=== PATIENT | male | born 1950 | race Caucasian/White ===

== ENCOUNTER → 2018-08-22 | Outpatient (CLI) | payer OTHER, MEDICARE ==
[~2018-08-22] MED LIST: IOPAMIDOL (ISOVUE 370) 100 ML BTL IV ONE
== END ==
LOC: CIMAGING 10:28
PROVIDERS: ATTEND Internal Medicine Cardiovascular Disease
DX: I71.2 Thoracic aortic aneurysm, without rupture (principal); R91.8 Other nonspecific abnormal finding of lung field; K65.4 Sclerosing mesenteritis; D17.71 Benign lipomatous neoplasm of kidney; D73.89 Other diseases of spleen; K75.3 Granulomatous hepatitis, not elsewhere classified; M89.8X8 Other specified disorders of bone, other site
CPT/HCPCS: 71275; 74175; Q9967; 82565-PO

== ENCOUNTER → 2018-08-29 | Outpatient (CLI) | payer OTHER, MEDICARE | LOC: BHFA 14:30 | PROVIDERS: ATTEND Internal Medicine Cardiovascular Disease | DX: I71.9 Aortic aneurysm of unspecified site, without rupture (principal); R01.1 Cardiac murmur, unspecified ==

== ENCOUNTER → 2018-09-14 | Day surgery (SDC) | payer OTHER, MEDICARE ==
[~2018-09-14] MED LIST changes: +BENZOCAINE UNIT DOSE SPRAY HURRICAINE MM ONE; -IOPAMIDOL (ISOVUE 370) 100 ML BTL IV ONE; +LIDOCAINE 2% 100 MG/5 ML SYR ONE; +MIDAZOLAM 2 MG/2 ML VIAL IVP ONE; +NS 500 ML IV ONE; +PROPOFOL 200 MG/20 ML VIAL ONE; +SUCCINYLCHOLINE CHLORIDE 200 MG/10 ML SYR IVP ONE; +fentaNYL 100 MCG/2 ML INJ IVP ONE
--- NOTE | 2018-09-14 15:36 | PDHPUP ---
History & Physical Update H&P update statement: This history and physical update is based on an assessment of the patient which was completed after admission or registration (within 24 hours), but prior to the surgery/procedure. H&P update: H&P reviewed & patient examined, no change in patient's condition since H&P completed
--- NOTE | 2018-09-14 16:27 | PDANEPAE ---
ANE History of Present Illness AI and Ao Aneurism s/f JACK ANE Past Medical History - Cardiovascular History Hx Hypertension: Yes - Pulmonary History Hx Oxygen in Use at Home: No Hx Sleep Apnea: No - Endocrine History Hx Diabetes: No Hypothyroid: Yes ANE Review of Systems Review of Systems: - Exercise capacity METS (RN): 5 METS ANE Patient History - Allergies Allergies/Adverse Reactions: No Known Allergies Allergy (Unverified 02/04/16 21:38) - Home Medications Home medications: home medication list seen and reviewed Home Medications: Levothyroxine [Synthroid 200 mcg (*)] 200 mcg PO DAILY 09/14/18 [Last Taken Unknown] Multivitamin 1 tab PO DAILY 09/14/18 [Last Taken Unknown] SUMAtriptan [Imitrex 50 MG (*)] 50 mg PO PRN PRN 09/14/18 [Last Taken Unknown] Telmisartan 40 mg PO DAILY 09/14/18 [Last Taken 09/14/18] - NPO status NPO Status: no food or drink >8 hours NPO Since - Liquids (Time): 12:00 (gatorade) - Anes Hx Anes Hx: no prior problems - Smoking Hx Smoking Status: Never smoked Marijuana use: No - Alcohol Use Alcohol Use: None - Family Anes Hx Family Anes Hx: none ANE Labs/Vital Signs - Labs Result Diagrams: 09/14/18 15:05 - Vital Signs Height: 198.12 cm Weight: 111.13 kg ANE Physical Exam - Airway Neck exam: FROM Mallampati Score: Class 1 Mouth exam: normal dental/mouth exam - Pulmonary Pulmonary: no respiratory distress - Cardiovascular Cardiovascular: regular rate and rhythym - ASA Status ASA Status: II ANE Anesthesia Plan Anesthesia Plan: GA with mask Urgent/Emergent Case: Chente ferrell completed preop but documented later for safe timely pt care
--- NOTE | 2018-09-14 16:27 | POSTANESTH ---
Post Anesthetic Evaluation Cardiovascular Status: Normal, Stable Respiratory Status: Normal, Stable Level of Consciousness/Mental Status: Can Participate in Eval Pain Control: Adequate, Prn Tx Ordered Nausea/Vomiting Control: Adequate, Prn Tx Ordered Complications Possibly Related to Anesthesia: None Noted
--- NOTE | 2018-09-14 16:51 | ECHO ---
[email or web address] [address] [address] Main: [phone] Echocardiography Examination Transesophageal Name: DARIELA HINES MR#: [id number] Study Date: 09/14/2018 Study Time: 03:27 PM Date of : 1950 Age: 67 year(s) Height: ( ) Weight: ( ) BSA: Gender: Male Examination: JACK Contrast: I.V. dose of agitated saline Image Quality: Adequate Rhythm: Heart Rate: BP: / Indication: aortic insufficiency Procedure Staff Referring Physician: School Bus Mechanic: Toya Harkins [facility] Reading Physician: Jacobo Mojica MD Requesting Provider: Ordering Physician: Jacobo Mojica MD Indication: aortic insufficiency Acute complication: None Measurements Additional Vessels AV/MV Label Value Normal Value Label Value Normal Value AR Vena contracta 0.9 cm Conclusions The left ventricle measures at the upper limits of normal in size. The ejection fraction is preserved at 50-55%. There are no segmental wall motion abnormalities. Left ventricular free wall thickness is normal. The left atrium appears to be at the upper limits of normal in size. RA dimensions are normal. Interatrial septum is intact on color flow, 2 dimensional Doppler imaging and by agitated saline contrast injection. The mitral valve was normal appearance with mild mitral regurgitation. The aortic valve is structurally normal with 3 leaflets that appeared to be thin and pliable. There is severe aortic insufficiency with an eccentric jet directed posteriorly towards the anterior leaflet of the mitral valve. This appears to be based on annular dilatation. The ascending aorta and sinuses of Valsalva are dilated measuring 5.4 cm. There is no evidence of dissection. The tricuspid valve is normal in appearance with mild tricuspid regurgitation. The pulmonic valve appears to be normal with mild pulmonic insufficiency. No pericardial effusion. Findings Left Ventricle: Left ventricle is mildly dilated. Low normal left ventricular systolic function. EF evaluated by visual assessment. EF range is estimated at 50 % - 55 %. Patient: DARIELA HINES Study Date: 09/14/2018 Page 1 of 2 03:27 PM Right Ventricle: Normal size right ventricle. Right ventricular systolic function is normal. Left Atrium Appendage: No thrombus is identified. Mitral Valve: Mitral valve appears structurally normal. Mild mitral regurgitation. No mitral valve stenosis. Aortic Valve: Severe aortic regurgitation is present. The jet is eccentric, directed towards the anterior mitral valve. There is no aortic stenosis. The aortic valve is trileaflet. Tricuspid Valve: Tricuspid valve leaflets are structurally normal. Mild tricuspid regurgitation. Pulmonic Valve: Pulmonic leaflets are structurally normal. Mild pulmonic valve regurgitation is present. Aorta: Markedly dilated sinus of valsalva measuring 5.40 cm. Pericardium: No pericardial effusion. Exam Details Procedure Ordered: JACK Procedure Status: Routine study Image Quality: Adequate Consent: Risks, alternatives of procedure explained to patient, informed consent obtained Probe Insertion: Attending crm manager Contrast: I.V. dose of agitated salineIntravenous contrast was administered to evaluate intracardiac shunting Facility Location: Cardiac Echo 1 (No Signature Object) Patient: DARIELA HINES Study Date: 09/14/2018 Page 2 of 2 03:27 PM [id number]
== END | disposition home or self-care (01) ==
LOC: FCATH 14:57
PROVIDERS: ATTEND Internal Medicine Cardiovascular Disease
PROC: B246ZZ4 Ultrasonography of Right and Left Heart, Transesophageal (ICD-10-PCS; principal; 2018-09-14)
DX: I35.1 Nonrheumatic aortic (valve) insufficiency (principal); I71.2 Thoracic aortic aneurysm, without rupture; R91.1 Solitary pulmonary nodule; R93.7 Abnormal findings on diagnostic imaging of other parts of musculoskeletal system; I10 Essential (primary) hypertension; E03.9 Hypothyroidism, unspecified
CPT/HCPCS: J0330; J2001; J2704

== ENCOUNTER → 2018-09-21 | Outpatient (CLI) | payer OTHER, MEDICARE | LOC: FIMAGING 12:31 | PROVIDERS: ATTEND Surgery | DX: E21.3 Hyperparathyroidism, unspecified (principal) | CPT/HCPCS: 78070; A9500 ==

== ENCOUNTER → 2018-09-28 | Outpatient (CLI) | payer OTHER, MEDICARE | LOC: FIMAGING 15:45 | PROVIDERS: ATTEND Physician Assistant | DX: E21.3 Hyperparathyroidism, unspecified (principal) ==

== ENCOUNTER 2018-10-06 10:00 | Observation (INO) | payer OTHER, MEDICARE ==
[2018-10-06] MEDS ORDERED: BUPIVACAINE 0.25% 30 ML SDV ONE (13:22)
[2018-10-06] MEDS ORDERED: THROMBIN (BOVINE) 5,000 UNIT VIAL TP ONE (13:23)
[2018-10-06] MEDS ORDERED: LR 1,000 ML IV SCH (13:31)
[2018-10-06] MEDS ORDERED: ceFAZolin 2 GM/DEXTROSE 100 ML IV ONE (13:31)
[2018-10-06] MEDS ORDERED: LIDOCAINE 1% 2 ML INJ ID PRN (13:44)
[2018-10-06] MEDS ORDERED: LIDOCAINE 1% 2 ML INJ ONE (13:50)
--- NOTE | 2018-10-06 14:12 | PDHPUP ---
History & Physical Update H&P update statement: This history and physical update is based on an assessment of the patient which was completed after admission or registration (within 24 hours), but prior to the surgery/procedure. H&P update: no change in patient's condition since H&P completed, changes noted
--- NOTE | 2018-10-06 14:15 | PDANEPAE ---
ANE History of Present Illness parathyroid adenoma s/f L parathyroidectomy ANE Past Medical History - Cardiovascular History Hx Hypertension: Yes Hx Arrhythmias: No Hx Chest Pain: No Hx Coronary Artery / Peripheral Vascular Disease: No Hx Palpitations: No Cardiovascular History Comment: aortic insufficiency. aortic regurgitation. Ao anuerism. followed by [facility] - Pulmonary History Hx COPD: No Hx Asthma/Reactive Airway Disease: No Hx Recent Upper Respiratory Infection: No Hx Oxygen in Use at Home: No Hx Sleep Apnea: No Sleep Apnea Screening Result - Last Documented: Positive Pulmonary History Comment: pulm nodule dx 09/21/18. armond triggers - Neurologic History Hx Cerebrovascular Accident: No Hx Seizures: No Hx Dementia: No - Endocrine History Hx Diabetes: No Endocrine History Comment: hypothyroidism - Renal History Hx Renal Disorders: No - Liver History Hx Hepatic Disorders: No - Neurological & Psychiatric Hx Hx Neurological and Psychiatric Disorders: No - Congenital Disorder History Hx Congenital Disorders: No - GI History Hx Gastrointestinal Disorders: No - Other Health History Other Health History: wears glasses - Chronic Pain History Chronic Pain: No - Surgical History Prior Surgeries: 09/14/18 JACK with White. shoulder scope ANE Review of Systems Review of Systems: - Exercise capacity METS (RN): 6 METS ANE Patient History - Allergies Allergies/Adverse Reactions: No Known Allergies Allergy (Verified 10/06/18 13:38) - Home Medications Home medications: home medication list seen and reviewed Home Medications: Levothyroxine [Synthroid 200 mcg (*)] 200 mcg PO DAILY 09/14/18 [Last Taken Unknown] SUMAtriptan [Imitrex 50 MG (*)] 50 mg PO PRN PRN 09/14/18 [Last Taken Unknown] Telmisartan 40 mg PO DAILY 09/14/18 [Last Taken 09/14/18] - NPO status NPO Status: no food or drink >8 hours NPO Since - Liquids (Date): 10/06/18 NPO Since - Liquids (Time): 11:00 NPO Since - Solids (Date): 10/06/18 NPO Since - Solids (Time): 05:30 - Anes Hx Anes Hx: no prior problems - Smoking Hx Smoking Status: Never smoked - Alcohol Use Alcohol Use: None - Family Anes Hx Family Anes Hx: none (Gatorade at 1100) Family Hx Anesthesia Complications: none ANE Labs/Vital Signs - Labs Result Diagrams: 10/06/18 13:55 - Labs - BMP Sodium: pending - Vital Signs Blood Pressure: 150/81 Heart Rate: 58 Respiratory Rate: 16 O2 Sat (%): 97 Height: 198.12 cm Weight: 111.13 kg ANE Physical Exam - Airway Neck exam: FROM Mallampati Score: Class 2 Mouth exam: normal dental/mouth exam - Pulmonary Pulmonary: no respiratory distress - Cardiovascular Cardiovascular: regular rate and rhythym - ASA Status ASA Status: II ANE Anesthesia Plan Anesthesia Plan: general endotracheal anesthesia (2nd IV in saphenous, keep dP/ dT low)
[2018-10-06] MEDS ORDERED: REMIFENTANIL HCL 1 MG VIAL ONE (14:24)
[2018-10-06] MEDS ORDERED: PROPOFOL/EMULSION 500 MG/50 ML BOTTLE IV ONE (14:24)
[2018-10-06] MEDS ORDERED: DEXAMETHASONE 4 MG/ML VIAL ONE ×2 (14:24)
[2018-10-06] MEDS ORDERED: ONDANSETRON 4 MG/2 ML VIAL ONE (14:24)
[2018-10-06] MEDS ORDERED: LIDOCAINE 2% 2 ML INJ ONE ×2 (14:24)
[2018-10-06] MEDS ORDERED: fentaNYL 100 MCG/2 ML INJ ONE (14:24)
[2018-10-06] MEDS ORDERED: ePHEDrine SULFATE 25 MG/5 ML SYR ONE ×2 (14:42)
[2018-10-06] MEDS ORDERED: PROPOFOL 200 MG/20 ML VIAL ONE (15:56)
[2018-10-06] MEDS ORDERED: ONDANSETRON 4 MG/2 ML VIAL IVP PRN ×2 (16:25→16:54)
[2018-10-06] MEDS ORDERED: MEPERIDINE 25 MG/0.5 ML AMP IVP PRN (16:25)
[2018-10-06] MEDS ORDERED: ALBUTEROL 3 ML DEYVIAL IH PRN (16:25)
[2018-10-06] MEDS ORDERED: METOCLOPRAMIDE 10 MG/2 ML VIAL IVP PRN (16:25)
[2018-10-06] MEDS ORDERED: LR 500 ML IV PRN (16:25)
[2018-10-06] MEDS ORDERED: ACETAMINOPHEN 500 MG TAB PO PRN (16:25)
[2018-10-06] MEDS ORDERED: PROMETHAZINE HCL 25 MG/ML INJ IVP PRN (16:25)
[2018-10-06] MEDS ORDERED: LABETALOL HCL 5 MG/ML 20 ML MDV IVP PRN (16:25)
[2018-10-06] MEDS ORDERED: DEXAMETHASONE 4 MG/ML VIAL IVP PRN (16:25)
[2018-10-06] MEDS ORDERED: fentaNYL 100 MCG/2 ML INJ IVP PRN (16:25)
[2018-10-06] MEDS ORDERED: NALOXONE HCL 0.4 MG/ML INJ IVP PRN (16:25)
[2018-10-06] MEDS ORDERED: oxyCODONE IR 5 MG TAB PO PRN (16:25)
[2018-10-06] MEDS ORDERED: PHENYLEPHRINE HCL 100 MCG/ML SYR IVP PRN (16:25)
[2018-10-06] MEDS ORDERED: traMADol 50 MG TAB PO PRN (16:57)
[2018-10-06] MEDS ORDERED: IBUPROFEN 600 MG TAB PO PRN (16:58)
--- NOTE | 2018-10-06 17:01 | POSTOPPROG ---
Post Op Note Date of Operation: 10/06/18 Surgeon: Almas Batres (, FACS) Program Lead: Casey Sparks RN-FA Anesthesiologist: Jose Aviles MD Anesthesia: GET(General Endotracheal) Pre-op Diagnosis: hyperparathyroidism Post-op Diagnosis: same Procedure: parathyroidectomy Findings: 2700 mg L superior pole parathyroid adenoma Inf/Abcess present in the surg proc area at time of surgery?: No Bowel Protocol: N/A Clean Closure Performed: N/A Specimen(s): Left superior parathyroid glan
--- NOTE | 2018-10-06 17:17 | POSTANESTH ---
Post Anesthetic Evaluation Cardiovascular Status: Normal, Stable Respiratory Status: Normal, Stable, Tx Decrease in SpO2 Level of Consciousness/Mental Status: Can Participate in Eval, Mildly Sleepy, Arousable Pain Control: Adequate, Prn Tx Ordered Nausea/Vomiting Control: Adequate, Prn Tx Ordered Complications Possibly Related to Anesthesia: None Noted
--- NOTE | 2018-10-06 17:39 | GOP ---
[f rep st] OPERATIVE REPORT DATE OF OPERATION: 10/06/2018 SURGEON: Almas Batres MD, FACS LOOM CHANGEOVER OPERATOR SURGEON: Zoë Sparks RN-FA ANESTHESIOLOGIST: Jose Aviles MD. Anesthesia: GET PREOPERATIVE DIAGNOSIS: Hyperparathyroidism. POSTOPERATIVE DIAGNOSIS: Hyperparathyroidism. PROCEDURE PERFORMED: Parathyroidectomy. FINDINGS: 2700 mg left superior pole parathyroid adenoma confirmed by histology. Intraoperative parathyroid hormone levels dropped from a preop baseline of 241 down to 70. Possible inferior parathyroid gland marked at the time of surgery. ESTIMATED BLOOD LOSS: 10 cc. DESCRIPTION OF PROCEDURE: Procedure after informed consent was obtained, the patient was brought to the operating room and placed under general anesthesia. The neck and chest were prepped and draped in usual fashion. Before proceeding , a time-out identification of the patient was performed. The planned incision site was marked on the skin with a marking pen, infiltrated with 0.25% Marcaine, and incised transversely between the heads of the sternocleidomastoid muscle. Dissection was carried out through the platysma muscle and flaps were elevated cephalad to the cricothyroid membrane, inferiorly to the suprasternal notch. The midline strap muscles were mobilized and gently in the midline and retracted to the left. There were some inflammatory changes around the thyroid and the muscle was somewhat adherent to the capsule of the thyroid, which was somewhat firm, but normal in size and without suspicious nodules. The thyroid gland was high relative to the incision site and close to the larynx. To gain exposure to the trachea esophogeal groove, it was rotated medially. The inferior blood supply was taken down with the Harmonic scalpel, freeing up the inferior pole of the thyroid gland. Dissecting posterior to this revealed the adenoma, which was moderately enlarged. This was dissected circumferentially. Its blood supply was identified as it entered the gland and this was taken down with the Harmonic scalpel. The dissection was carried out slowly and carefully circumferentially until the gland was freed from the remaining fibrofatty tissues of the neck and was removed from the field. Timed PTH levels were obtained at 10 and 20 minutes. While we were waiting for these results, frozen section was performed on the suspected adenoma and this confirmed a hypercellular parathyroid weighing 2700 mg. Dissecting the area below this revealed the recurrent laryngeal nerve, which coursed posteriorly to the location of the gland and, after identifying the nerve, it was left undisturbed for the remainder of the case. An inferior parathyroid gland suspected near the thymic slip was marked with a 4-0 Prolene, but was left undisturbed otherwise. There was no pathologic appearing adenopathy in the neck. After the first of two PTH levels came back with a significant drop from the preop, the strap muscles were approximated in the midline with 3-0 Vicryl suture. The platysmal muscle layer was closed with 3-0 Monocryl suture. The second PTH level came down even further, and we proceeded with skin closure with 4-0 Monocryl suture in a subcuticular fashion for the skin. The skin was closed with Dermabond and no dressings were applied. The patient was returned, extubated, to the recovery room in satisfactory condition. Needle, sponge, and instrument count correct. Note: the safe and timely completion of the operation required the help of an experienced and qualified welder first class and JASPER Vasquez was requested to attend in addition to the remaining fine staff on duty for the hospital. COMPLICATIONS: None. /[id number]/MODL MTDD
[2018-10-06] MEDS ORDERED: TELMISARTAN 40 MG TAB PO SCH (21:00)
[2018-10-06] MEDS: ACETAMINOPHEN 500 MG TAB PO SCH (21:06)
[2018-10-06] MEDS: CALCIUM CARBONATE 500 MG CHEWABLE TAB PO SCH (21:07)
[2018-10-07] MEDS: ACETAMINOPHEN 500 MG TAB PO SCH (05:00)
[2018-10-07] MEDS ORDERED: LEVOTHYROXINE 150 MCG TAB PO SCH (06:00)
[2018-10-07] MEDS ORDERED: LEVOTHYROXINE 175 MCG TAB PO SCH (06:00)
[2018-10-07 08:04] VITALS: BP 143/83
[2018-10-07] MEDS: CALCIUM CARBONATE 500 MG CHEWABLE TAB PO SCH (08:10)
--- NOTE | 2018-10-07 08:44 | PDDCSUM ---
Discharge Summary Discharge Summary: #[id number] KENYON Batres MD, FACS
[2018-10-07] MEDS ORDERED: CALCITRIOL 0.25 MCG CAP PO SCH (09:00)
[2018-10-07] MEDS ORDERED: ENOXAPARIN 40 MG/0.4 ML SYR SC SCH (09:00)
--- NOTE | 2018-10-07 09:06 | GDS ---
[f rep st] DISCHARGE SUMMARY DISCHARGE DIAGNOSES: 1. Hyperparathyroidism. 2. Hypertension. 3. Thoracic aortic aneurysm with associated aortic insufficiency. 4. Hx hypothyroidism PROCEDURE PERFORMED: parathyroidectomy. HOSPITAL COURSE: For details of admission, history and physical, please see dictated summary. Briefly, patient is a 67-year-old male recently found to have hyperparathyroidism, admitted for parathyroidectomy. Patient was also recently found to have a dilated thoracic aorta with aortic insufficiency. The patient underwent surgery on the date of admission. Preoperative PTH level was 241. This dropped after removal of a left superior pole parathyroid adenoma weighing 2700 mg. On the morning of discharge, PTH was 31, calcium was 10.1, preoperative calcium was 11.1. Blood pressure remained elevated in the perioperative. He was continued on his telmisartan 80 mg q.h.s. At time of discharge, additional medications include Synthroid 150 mcg p.o. daily, ibuprofen 600 mg every 6 hours p.r.n. pain, calcium carbonate 500 mg p.o. t.i.d. , calcitriol 0.25 mcg p.o. daily, and Tylenol 1000 mg every 8 hours p.r.n. pain. Patient did not require narcotics in the perioperative. His Synthroid dose was dropped from a prior dose of 175 mcg per day to 150 mcg per day because of a TSH of 0.136. At time of discharge, patient was ambulatory, afebrile, his incision was healing well without sign of infection, and he had minimal swelling. He was tolerating a regular diet, did not require supplemental oxygen. CONDITION AT TIME OF DISCHARGE: Satisfactory. Followup arranged for a repeat PTH with minerals in 10 days and again at 30 days. I ordered an outpatient bone scan/DEXA to be performed to obtain a baseline bone density which has not yet been done. /[id number]/MODL MTDD
[2018-10-07] MEDS ORDERED: PNEUMOC 13-VAL CONJ-DIP CRM/PF 0.5 ML SYR (PREVNAR 13) IM ONE (09:40)
== END 2018-10-07 11:16 | disposition home or self-care (01) ==
LOC: F3E 13:03 → EEVIPCON 14:30 → F3E 18:00
PROVIDERS: ADMIT Surgery; ATTEND Surgery
PROC: 0GTR0ZZ Resection of Parathyroid Gland, Open Approach (ICD-10-PCS; principal; 2018-10-06 14:30)
DX: D35.1 Benign neoplasm of parathyroid gland (principal); E21.1 Secondary hyperparathyroidism, not elsewhere classified; I10 Essential (primary) hypertension; I71.2 Thoracic aortic aneurysm, without rupture; I35.1 Nonrheumatic aortic (valve) insufficiency; E03.9 Hypothyroidism, unspecified; Z23 Encounter for immunization
CPT/HCPCS: 60500; 88305; 88331; 90670; G0009; J0690; J1100; J1650; J2405; J2704; J3010